=== PATIENT | female | born 1970 | race Caucasian/White ===

== ENCOUNTER 2016-09-21 11:38 | Outpatient (CLI) ==
[2015-08-01 09:33] VITALS: BMI 23.6
== END 2016-09-21 11:39 | disposition home or self-care (01) ==
LOC: LAB 11:38
PROVIDERS: ATTEND Internal Medicine Endocrinology, Diabetes & Metabolism
DX: E03.9 Hypothyroidism, unspecified (principal)
CPT/HCPCS: 36415; 84439; 84443; 84481

== ENCOUNTER 2016-11-28 11:38 | Outpatient (CLI) ==
[2015-08-01 09:33] VITALS: BMI 23.6
== END 2016-11-28 11:39 | disposition home or self-care (01) ==
LOC: LAB 11:38
DX: E03.9 Hypothyroidism, unspecified (principal)
CPT/HCPCS: 36415; 84439; 84443

== ENCOUNTER 2016-12-06 11:51 | Outpatient (CLI) ==
[2015-08-01 09:33] VITALS: BMI 23.6
--- NOTE | 2016-12-06 12:38 | DI ---
EXAM: Three views of the lumbar spine. History: Lower back pain. Comparison: Lumbar spine radiograph 04/13/2015 Findings: No acute fracture or subluxation. Moderate disc space narrowing at L5-S1 similar to the prior study. The other disc space heights are preserved. A few small anterior osteophytes. Modera te facet hypertrophy at L5-S1. Impression: No acute osseous abnormality of the lumbar spine. Moderate degenerative changes at L5- S1 similar to the prior study.
== END 2016-12-06 11:52 | disposition home or self-care (01) ==
LOC: RAD 11:51
PROVIDERS: ATTEND Internal Medicine
DX: M54.5 Low back pain (principal); M79.1 Myalgia

== ENCOUNTER 2017-03-15 07:55 | Outpatient (CLI) ==
[2015-08-01 09:33] VITALS: BMI 23.6
[2017-03-15 08:25] LABS: CREATININE 0.77 mg/dL (0.60-1.30)
--- NOTE | 2017-03-15 08:59 | US ---
EXAM: ULTRASOUND CAROTID DUPLEX, BILATERAL HISTORY: Dizziness FINDINGS: Martinez-scale ultrasound, color Doppler and spectral analysis was performed. Velocities are in meters per second. By martinez scale and color Doppler imaging, there appears to be only minimal intimal thickening and sca ttered atherosclerotic plaque in both carotid systems, including the bulbs and internal carotid steven rebecca. RIGHT: External carotid artery peak systolic velocity: 1.3 Common carotid artery peak systolic velocity/end diastolic velocity: 0.9/0.3 Internal carotid artery peak systolic velocity: 1.1 ICA/CCA peak systolic velocity ratio: 1.2 ICA end diastolic velocity: 0.5 LEFT: External carotid artery peak systolic velocity: 0.9 Common carotid artery peak systolic velocity/end diastolic velocity: 1.0/0.3 Internal carotid artery peak systolic velocity: 1.1 ICA/CCA peak systolic velocity ratio: 1.1 ICA end diastolic velocity: 0.5 The right and left vertebral arteries were antegrade. IMPRESSION: 1. By martinez scale and color Doppler imaging, there appears to be only minimal intimal thickening and scattered atherosclerotic plaque in both carotid systems, including the bulbs and internal carotid arteries. 2. Internal carotid artery peak systolic velocities and ICA/CCA peak systolic velocity ratios indic ate no hemodynamically significant stenosis bilaterally. 3. Both vertebral arteries were antegrade.
--- NOTE | 2017-03-15 11:08 | MRI ---
EXAM: Brain MRI with and without contrast. HISTORY: Dizziness. COMPARISON: Head CT 04/06/2015. TECHNIQUE: Multiplanar, multisequence MR images were acquired of the brain before and after adminis tration of intravenous contrast. FINDINGS: The midline structures are central. The cerebellar tonsils extend to the foramen magnum without overt ectopia. The ventricles and sulci are normal in size and configuration. There are no abnormal extra-axial fluid collections. The brain parenchyma has no diffusion restriction to suggest acute hypoperfusion or infarction. The re are no abnormal T2 hyperintensities or foci of dark gradient echo signal. After administration o f contrast, no enhancing lesions are identified. The corpus callosum is normal in size and configur ation. The pituitary gland is normal in size with a slightly concave superior border. The infundib ulum is midline. 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 There are no intraorbital masses. There is mild mucosal thickening in the frontal sinus and sphenoi d sinus and minor mucosal thickening in the left maxillary sinus. Mild to moderate mucosal thickeni ng is present in the ethmoid air cells bilaterally. There is mild mucosal thickening in the right m axillary antrum with two mucous retention cysts or polyps along the floor. Mild adenoidal hypertrop hy is present with tiny nasopharyngeal mucosal cysts. Middle ears and mastoids are clear. No abnor mal contrast enhancement is present in the internal auditory canals or labyrinthine structures. Flow voids are present in the major intracranial arteries which are partially visualized. Dural jenny ous sinuses are patent. There is 1.5 mm anterolisthesis of C3 on C4 and moderately severe left hypertrophic facet arthropath y. IMPRESSION: 1. No intracranial mass, hemorrhage or acute cerebral infarct. 2. Mild to moderate mucosal thickening ethmoid air cells bilaterally and mild mucosal thickening wi th two mucous retention cysts right maxillary sinus. 3. 1.5 mm degenerative anterolisthesis C3 on C4 due to moderately severe left hypertrophic facet ar thropathy.
== END 2017-03-15 07:56 | disposition home or self-care (01) ==
LOC: RAD 07:55
PROVIDERS: ATTEND Internal Medicine
DX: R42 Dizziness and giddiness (principal)
CPT/HCPCS: 36415; 82565

== ENCOUNTER 2018-05-16 14:25 | Emergency (ER) ==
[2018-05-16 14:32] VITALS: BP 150/99; TEMP 98.5; BMI 22.9
[2018-05-16] MEDS: ATIVAN IM STA (15:07)
--- NOTE | 2018-05-16 16:28 | DI ---
EXAM: Two views of the chest. History: Short of breath Comparison: Chest radiograph 06/13/2017 Findings: Heart size is within normal limits. No focal consolidation. No appreciable pleural fluid and no pneumothorax. No acute osseous abnormalities. Impression: No acute cardiopulmonary process
--- NOTE | 2018-05-16 16:31 | ED.PDOC ---
General ED Provider: Dr. MOSHE ZUÑIGA Chief Complaint: Shortness of Air Stated Complaint: SHORTNESS OF BREATH Time Seen by Physician: 14:30 (SEEN WITH NURSES AT ALL TIMES ) Mode of Arrival: Walk-In Information Source: Patient Exam Limitations: No limitations Primary Care Provider: WAYNE DOUGLAS Nursing and Triage Documentation Reviewed and Agree: Yes Does patient meet sepsis criteria?: No If yes, has appropriate treatment been initiated?: No System Inflammatory Response Syndrome: Not Applicable Sepsis Protocol: For patient's 13 years and over: Temp is 96.8 and below OR 101 and greater Pulse >90 BPM Resp >20/minute Acutely Altered Mental Status Are patient's symptoms suggestive of a new infection, such as: -Pneumonia -Skin, Soft Tissue -Endocarditis -UTI -Bone, Joint Infection -Implantable Device -Acute Abdominal Infection -Wound Infection -Meningitis -Blood Stream Catheter Infection -Unknown Respiratory Complaint Exam - Respiratory Complaint/Exam Symptoms Are: Still present Timing: Intermittent Initial Severity: Mild Current Severity: Mild Location: Chest Aggravating: Reports: None Alleviating: Reports: None Associated Signs and Symptoms: Reports: Rapid breathing History of Healthcare-Acquired Pneumonia: No Related Surgical History: Reports: None Pulmonary Embolism Risk Factors: None Cardiac Risk Factors: Reports: None Pseudomonas Risk Factors: Reports: None Tuberculosis Risk Factors: Reports: None Status Asthmaticus Risk Factors: Reports: None Home Oxygen Use: No Recent Stress Test: No Recent Echo/LV Function: No Current Antibiotic Use: No Current Asthma Medication Use: No Respiratory Distress: None Inadequate Respiratory Effort: No Dysphagia Present: No Stridor Present: No JVD Present: No Accessory Muscle Use: No Retractions: Not Present Diminished Breath Sounds: No Sinus Tenderness: None Differential Diagnoses: Pneumonia, Bronchitis Review of Systems - Review Of Systems Constitutional: Reports: No symptoms Eyes: Reports: No symptoms Ears, Nose, Mouth, Throat: Reports: No symptoms Respiratory: Reports: Short of air Cardiac: Reports: No symptoms GI: Reports: No symptoms : Reports: No symptoms Musculoskeletal: Reports: No symptoms Skin: Reports: No symptoms Neurological: Reports: No symptoms Endocrine: Reports: No symptoms Hematologic/Lymphatic: Reports: No symptoms All Other Systems: Reviewed and Negative Past Medical History - Past Medical History Previously Healthy: Yes Endocrine: Reports: None Cardiovascular: Reports: None Respiratory: Reports: None Hematological: Reports: None Gastrointestinal: Reports: None Genitourinary: Reports: None Neuro/Psych: Reports: None, Migraine Musculoskeletal: Reports: None Cancer: Reports: None Last Menstrual Period: hysterectoomy - Surgical History General Surgical History: Reports: Unknown - Family History Family History: Reports: Unknown - Social History Smoking Status: Current every day smoker, Heavy tobacco smoker Hx Substance Use: No Alcohol Screening: None Physical Exam - Physical Exam Appearance: Well-appearing, No pain distress, Well-nourished Eyes: CAROL, EOMI, Conjunctiva clear ENT: Ears normal, Nose normal, Oropharynx normal Respiratory: Airway patent, Breath sounds clear, Breath sounds equal, Respirations nonlabored Cardiovascular: RRR, Pulses normal, No rub, No murmur GI/: Soft, Nontender, No masses, Bowel sounds normal, No Organomegaly Musculoskeletal: Normal strength, ROM intact, No edema, No calf tenderness Skin: Warm, Dry, Normal color Neurological: Sensation intact, Motor intact, Reflexes intact, Cranial nerves intact, Alert, Oriented Psychiatric: Affect appropriate, Mood appropriate Interpretation - Radiology Interpretation Radiology Interpretation By: Radiologist Radiology Results: No acute changes Re-Evaluation - Re-Evaluation Time of Re-Evaluation: 16:00 Status: Improved Vital Signs Stable: Yes Pain Level: 0 Appearance: NAD Lungs: Clear Skin: Warm and Dry Neuro: Alert and Oriented X3 CV: RRR - Re-Evaluation Time of Re-Evaluation: 16:33 Status: Improved Vital Signs Stable: Yes Pain Level: 0 Appearance: NAD Skin: Warm and Dry Neuro: Alert and Oriented X3 CV: RRR (VALERIE PRESENT AT ALL TIMES) Physician Notification - Case Discussed Physician Notified: PMD Time of Notification: 16:34 (ALL LABS DISCUSSED PMD THINKS PT CAN GO HOME) Critical Care Note - Critical Care Note Total Time (mins): 0 Course - Course Hematology/Chemistry: 05/16/18 15:01 05/16/18 15:01 Orders, Labs, Meds: Lab Review 05/16/18 05/16/18 05/16/18 14:48 15:01 15:01 WBC 11.31 H RBC 4.89 Hgb 15.0 Hct 41.8 MCV 85.5 MCH 30.7 MCHC 35.9 H RDW Coeff of Tristen 11.8 Plt Count 238 Immature Gran % (Auto) 0.4 Neut % (Auto) 81.5 Lymph % (Auto) 14.8 Screven % (Auto) 2.6 Eos % (Auto) 0.3 Baso % (Auto) 0.4 Immature Gran # (Auto) 0.0 Neut # (Auto) 9.2 H Lymph # (Auto) 1.7 Screven # (Auto) 0.3 L Eos # (Auto) 0.0 Baso # (Auto) 0.0 D-Dimer (Manual) Puncture Site Rr O2 Saturation 100.0 ABG pH 7.683 H* ABG pCO2 16.2 L ABG pO2 125.0 H ABG HCO3 19.2 L ABG Total CO2 20 L ABG Base Excess -1 Shay Test + FiO2 % 21.0 Sodium 140.0 Potassium 3.87 Chloride 107.5 H Carbon Dioxide 22.7 Anion Gap 13.67 BUN 14.2 Creatinine 0.87 Estimated GFR (MDRD) 69.00 BUN/Creatinine Ratio 16.32 Glucose 116.5 H Calcium 8.80 Total Bilirubin 0.35 AST 51.5 H ALT 81.4 H Alkaline Phosphatase 69.7 Total Creatine Kinase 250.0 H CK-MB (CK-2) 0.550 CK-MB (CK-2) % 0.2200 Troponin I < 0.012 Total Protein 7.86 Albumin 4.83 Globulin 3.03 Albumin/Globulin Ratio 1.59 Serum , Qual 05/16/18 05/16/18 15:01 15:01 WBC RBC Hgb Hct MCV MCH MCHC RDW Coeff of Tristen Plt Count Immature Gran % (Auto) Neut % (Auto) Lymph % (Auto) Scre[place] % (Auto) Eos % (Auto) Baso % (Auto) Immature Gran # (Auto) Neut # (Auto) Lymph # (Auto) Screven # (Auto) Eos # (Auto) Baso # (Auto) D-Dimer (Manual) 283.53 Puncture Site O2 Saturation ABG pH ABG pCO2 ABG pO2 ABG HCO3 ABG Total CO2 ABG Base Excess Shay Test FiO2 % Sodium Potassium Chloride Carbon Dioxide Anion Gap BUN Creatinine Estimated GFR (MDRD) BUN/Creatinine Ratio Glucose Calcium Total Bilirubin AST ALT Alkaline Phosphatase Total Creatine Kinase CK-MB (CK-2) CK-MB (CK-2) % Troponin I Total Protein Albumin Globulin Albumin/Globulin Ratio Serum , Qual Negative Orders Category Date Time Status ABG DRAW REQUEST Stat CARDIO 05/16/18 14:48 Completed EKG-(ED ONLY) Stat CARDIO 05/16/18 14:54 Completed ABG Stat LAB 05/16/18 14:48 Completed CBC W/ AUTO DIFF Stat LAB 05/16/18 15:01 Completed COMPREHENSIVE METABOLIC PANEL Stat LAB 05/16/18 15:01 Completed CREATINE KINASE Stat LAB 05/16/18 15:01 Completed D-DIMER Stat LAB 05/16/18 15:01 Completed HEPATITIS PANEL, ACUTE Stat LAB 05/16/18 15:01 Received SERUM Stat LAB 05/16/18 15:01 Completed TROPONIN I Stat LAB 05/16/18 15:01 Completed Lorazepam [Ativan] MEDS 05/16/18 14:49 Discontinued 1 mg IM ONCE STA CHEST, 2 VIEWS PA & LAT Stat RADS 05/16/18 14:47 Completed Medications Discontinued Medications Generic Name Dose Route Start Last Admin Trade Name Freq PRN Reason Stop Dose Admin Lorazepam 1 mg 05/16/18 14:49 05/16/18 15:07 Ativan IM 05/16/18 14:50 1 mg ONCE STA Administration Vital Signs: Temp Pulse Resp BP Pulse Ox 05/16/18 14:26 98.5 F 103 H 20 150/99 H 98 Departure - Departure Time of Disposition: 16:35 Disposition: HOME SELF-CARE Discharge Problem: Panic attack Instructions: Anxiety (ED), Panic Disorder (ED), Stress (ED), Panic Attack (ED) Condition: Good Pt referred to PMD for follow-up: Yes IPMP verified?: No Additional Instructions: Please call your Family Physician as soon as possible to schedule a follow-up appointment.YOUR LIVER ENZYMES ARE ELEVATED PLEASE SEE YOUR MD SALGADO I HAVE ORDERED A HEPATITIS TEST ON YOU OBTAIN RESULY FROM YOUR DOCTOR Allergies/Adverse Reactions: Allergies naproxen [From Aleve] Adverse Reaction (Verified 05/16/18 14:35) Home Medications: Ambulatory Orders Gabapentin 300 mg PO BEDTIME 04/06/15 Lorazepam [Ativan] 1 mg PO DAILY 04/06/15 Calcium Carb, Citrate/Vit D3 [Calcium + D3 ER Tablet] 1 each PO DAILY 08/01/15 Oxycodone-Acetaminophen 10-325 [Percocet 10-325] 1 tab PO Q12H PRN 06/13/17 Thyroid,Pork [[place] Thyroid] 60 mg PO BID 06/13/17 Epinephrine [Epipen 2-Scar] 0.3 mg IM DIRECTED PRN #1 mg 06/14/17
== END 2018-05-16 16:41 | disposition home or self-care (01) ==
LOC: ED 14:25
DX: F41.0 Panic disorder [episodic paroxysmal anxiety] (principal); R94.5 Abnormal results of liver function studies; F17.210 Nicotine dependence, cigarettes, uncomplicated
CPT/HCPCS: 36415; 80053; 80074; 82550; 82553; 82803; 84484; 84703; 85025; 85379; 93005; 93010; 96372; 99283

== ENCOUNTER 2018-05-23 07:27 | Outpatient (CLI) ==
--- NOTE | 2018-05-23 10:30 | CT ---
EXAM: CT neck with contrast HISTORY: Thyroidectomy, dysphagia COMPARISON: None TECHNIQUE: CT neck performed with intravenous contrast. Coronal and sagittal reformatted images obt ained. FINDINGS: Mastoid air cells clear. Mild mucosal thickening of the paranasal sinuses with areas of p olypoid mucosal thickening in the right maxillary sinus likely mucous retention cysts. Degenerative change in the spine. Mild emphysema lung apices. The globes, retrobulbar structures unremarkable. Parotid glands unremarkable. Submandibular glands unremarkable. Evaluation of the aerodigestive tra ct demonstrates no exophytic mass lesion or area of focal mass effect. Small focal low attenuation i n the right peripalatine tonsil region likely represents trace focal fluid/debris. Epiglottis appears normal. Prevertebral soft tissues appear normal. No lymphadenopathy in the neck. IMPRESSION: 1. No acute abnormality identified in the neck. 2. Small focal low attenuation in the right peripalatine tonsil region likely represents trace focal fluid/debris. Recommend correlation with direct visualization. 3. Mild emphysema.
--- NOTE | 2018-05-23 11:26 | DI ---
EXAM: Upper GI series HISTORY: Dysphagia COMPARISON: None FINDINGS: Upper GI series was performed using barium. Esophageal motility is normal. Esophageal luisa kiya is normal. No filling defect is seen in the esophagus. Small hiatal hernia. No reflux identified on real time examination. The stomach appears grossly normal without mass lesion or ulcer. The duoden um appears grossly normal without mass lesion or ulcer. IMPRESSION: Small hiatal hernia. Otherwise unremarkable upper GI.
== END 2018-05-23 07:28 | disposition home or self-care (01) ==
LOC: RAD 07:27
PROVIDERS: ATTEND Internal Medicine
DX: T78.3XXA Angioneurotic edema, initial encounter (principal); R13.10 Dysphagia, unspecified; E21.5 Disorder of parathyroid gland, unspecified; E89.0 Postprocedural hypothyroidism; Z90.89 Acquired absence of other organs; F17.210 Nicotine dependence, cigarettes, uncomplicated
CPT/HCPCS: 36415; 82565

== ENCOUNTER 2018-06-12 14:18 | Outpatient (CLI) | END 2018-06-12 14:19 | disposition home or self-care (01) | LOC: LAB 14:18 | PROVIDERS: ATTEND Allergy & Immunology | DX: T78.2XXA Anaphylactic shock, unspecified, initial encounter (principal); T78.3XXA Angioneurotic edema, initial encounter; R06.00 Dyspnea, unspecified; F17.219 Nicotine dependence, cigarettes, with unspecified nicotine-induced disorders; J38.5 Laryngeal spasm; L50.8 Other urticaria | CPT/HCPCS: 36415; 82785; 83516; 85025; 85651; 86160 ==

== ENCOUNTER 2018-06-26 08:04 | Outpatient (CLI) | END 2018-06-26 08:05 | disposition home or self-care (01) | LOC: LAB 08:04 | PROVIDERS: ATTEND Allergy & Immunology | DX: T78.2XXA Anaphylactic shock, unspecified, initial encounter (principal); R06.00 Dyspnea, unspecified; L50.1 Idiopathic urticaria; F17.219 Nicotine dependence, cigarettes, with unspecified nicotine-induced disorders ==

== ENCOUNTER 2018-10-17 09:36 | Outpatient (CLI) | END 2018-10-17 09:37 | disposition home or self-care (01) | LOC: LAB 09:36 | PROVIDERS: ATTEND Internal Medicine Endocrinology, Diabetes & Metabolism | DX: E04.9 Nontoxic goiter, unspecified (principal); E03.9 Hypothyroidism, unspecified; E20.0 Idiopathic hypoparathyroidism; D51.0 Vitamin B12 deficiency anemia due to intrinsic factor deficiency; E55.9 Vitamin D deficiency, unspecified; R63.5 Abnormal weight gain | CPT/HCPCS: 36415; 80053; 82306; 82670; 82784; 83001; 83002; 83516; 83970; 84443 ==

== ENCOUNTER 2018-10-18 07:29 | Outpatient (CLI) | END 2018-10-18 07:30 | disposition home or self-care (01) | LOC: LAB 07:29 | PROVIDERS: ATTEND Internal Medicine Endocrinology, Diabetes & Metabolism | DX: E04.9 Nontoxic goiter, unspecified (principal); E03.9 Hypothyroidism, unspecified; E20.0 Idiopathic hypoparathyroidism; D51.0 Vitamin B12 deficiency anemia due to intrinsic factor deficiency; E55.9 Vitamin D deficiency, unspecified; R63.5 Abnormal weight gain | CPT/HCPCS: 36415; 80053; 82306; 82533; 82670; 82784; 83001; 83002; 83516; 83970; 84443 ==